=== PATIENT | male | born 1955 | race African-American/Black ===

== ENCOUNTER 2020-09-08 13:33 | Inpatient (IN) | payer OTHER ==
[~2020-09-08] VITALS: Ht 182.9 cm; Wt 118.6 kg
--- NOTE | 2020-09-08 13:33 | NUR ---
PATIENT TO ROOM VIA EMS AND PHYSICIAN AT BEDSIDE FOR EVAL
--- NOTE | 2020-09-08 13:33 | NUR ---
PATIENT ARRIVED WITH ROGERS CATHTER IN PLACE FROM FACILITY. DRAINING ZAYRA CLOUDY URINE
--- NOTE | 2020-09-08 14:28 | NUR ---
PATIENT RESTING EASILY AROUSED BUT DROWSY. PATIENT ANSWERS QUESTIONS DIRECTED AND FOLLOWS ALL COMMANDS
[2020-09-08 14:34] LABS: IMMATURE GRANULOCYTES 1.4 % (0.0-5.0); MEAN CELL VOLUME 76.2 fL CALC (80.0-100.0); MEAN CORPUSCULAR HGB 23.2 pG CALC (26.0-32.0); MEAN CORPUSCULAR HGB CONC 30.5 g/dL CAL (32.0-36.0); NEUT# 10.85 thou/uL (1.82-7.42); RED BLOOD COUNT 5.38 mill/uL (4.70-6.10); RED CELL DISTRI WIDTH 17.5 % (11.5-15.5)
[2020-09-08 14:37] LABS: URINE BILIRUBIN - DIPSTICK NEGATIVE (NEGATIVE); URINE BLOOD DIPSTICK LARGE (NEGATIVE); URINE COLOR YELLOW; URINE GLUCOSE - DIPSTICK NEGATIVE (NEGATIVE); URINE KETONE NEGATIVE (NEGATIVE); URINE PROTEIN - DIPSTICK 100 mg/dL (NEG-TRACE); URINE SPECIFIC GRAVITY 1.025
[2020-09-08 14:38] LABS: URINE LEUK ESTERASE SMALL (NEGATIVE); URINE NITRITE - DIPSTICK POSITIVE (Negative)
[2020-09-08 14:47] LABS: URINE RBC 25-50 RBC/hpf (0-5); URINE WBC 20-50 WBC/hpf (0-5)
[2020-09-08 14:48] LABS: HEMOGLOBIN 12.5 g/dl (14.0-18.0)
[2020-09-08 15:01] LABS: ALBUMIN 4.2 g/dL (3.2-5.0); ANION GAP 15 (6-22 (CALC)); BUN 18 mg/dL (8-23); BUN/CREATININE RATIO 13 (12-20 (CALC)); CARBON DIOXIDE 27 mmol/l (22-30); CHLORIDE 104 mmol/l (95-108); CREATININE 1.4 mg/dL (0.7-1.3); GFR 51 ML/MIN (>=60 (CALC)); GFR FOR AFR.AMER. > 60 ML/MIN (>=60 (CALC)); POTASSIUM 4.6 mmol/l (3.5-5.1); SGOT/AST 29 u/l (19-48); SODIUM 141 mmol/l (137-146); TOTAL PROTEIN 7.7 g/dL (6.3-8.2)
[2020-09-08] MEDS ORDERED: OXYBUTYNIN CHLOR5 M1 PO (15:03)
[2020-09-08 15:04] LABS: ALKALINE PHOSPHATASE 53 u/l (38-126); BILIRUBIN, TOTAL 0.7 mg/dL (0.0-1.4)
[2020-09-08] MEDS ORDERED: BENADRYL 550 MG/1 M2 IM (15:04)
[2020-09-08] MEDS ORDERED: HALDOL INJ5 MG/ML IM (15:05)
[2020-09-08] MEDS ORDERED: KLONOPIN0.5 M1 PO (15:06)
[2020-09-08] MEDS ORDERED: COLACE100 MG PO (15:07)
[2020-09-08] MEDS ORDERED: FLUPHENAZINE10 MG PO (15:08)
[2020-09-08] MEDS ORDERED: ZYPREXA PO (15:09)
[2020-09-08] MEDS ORDERED: FENOFIBRATE160 MG PO (15:09)
[2020-09-08] MEDS ORDERED: DEPAKOTE ER500 MG PO (15:10)
--- NOTE | 2020-09-08 15:11 | NUR ---
UNABLE TO VERIFY FREQUENCY OF MEDICATIONS TAKEN PHARMACY CONSULT PLACED
[2020-09-08 15:13] LABS: MYOGLOBIN 142 ng/mL (0 - 121)
--- NOTE | 2020-09-08 16:13 | NUR ---
AT BEDSIDE TO START ROCEPHIN. IV SITE TO RAC INFILTRATED WITH MODERATE SWELLING TO ARM. MD NOTIFIED. IV SITE REMOVED AND WARM COMPRESS APPLIED.
--- NOTE | 2020-09-08 16:30 | NUR ---
UNABLE TO START IV AT THIS TIME. MD NOTIFIED AND MLP AT BEDSIDE TO TRY TO INITIATE IV SITE.
--- NOTE | 2020-09-08 16:49 | NUR ---
ZUMBA INSTRUCTOR BEDSIDE FOR REPEAT LACTIC DRAW.
--- NOTE | 2020-09-08 17:37 | NUR ---
PATIENT RESTING WITH EYES CLOSED VOICING NO COMPLAINTS AT THIS TIME. PATINET AROUSES TO VERBAL STIMULI
--- NOTE | 2020-09-08 18:27 | NUR ---
PATIENT RESTING WITH EYES CLOSED BUT AROUSES TO VERBAL COMMANDS PUPILS 2MM AND REACTIVE. PATIENT AWAITNG ROOM ASSIGNMENT
--- NOTE | 2020-09-08 18:55 | NUR ---
REPORT PROVIDED TO TAMIKO FUENTES.
--- NOTE | 2020-09-08 19:00 | NUR ---
RECIEVED REPORT FROM KAILA/GINA FOSTER. PT TO BE ADMITTED.
[2020-09-08 19:59] LABS: ETHYL ALCOHOL 0 mg/dl (0-30)
--- NOTE | 2020-09-08 20:00 | NUR ---
REPORT GIVEN TO GINA MCGUIRE
[2020-09-08 21:30] VITALS: BP 146/57
--- NOTE | 2020-09-08 21:30 | NUR ---
WENT TO TRANSPORT PT AND NOTED PT FELT WARM. CHECKED TEMP 99.1. PT WAS LOADED WITH BLANKETS ALL WRAPPED AROUND HIM. PT TRANSPORTED VIA STRETCHER TO ROOM 274 WITH B/L ANKLES SHACKLED TOGETHER AND 2 GUARDS AT BEDSIDE. UPDATED AUBREY ON PT.
--- NOTE | 2020-09-08 22:30 | NUR ---
Pt was admitted to room 274 via stretcher. Pt was transferred to bed with 3 staff assist. Pt is not able to make needs known and responds to touch. appears drowsy and words are garbled. Lung sounds are clear/diminished. No cough or congestion noted. on telemetry and HR at 110bpm as well as tempt of 100.6. Md was called and new order for Tylenol.. NS 0.9% running at 150ml/hr. pt has a manriquez catheter in place and steve coloreed urine noted. pt has 3 gaurds at bedside.
[2020-09-09] VITALS: BP 131/65
--- NOTE | 2020-09-09 01:00 | NUR ---
Pt in bed with eyes open and appears to be more alert. Pt is answering questions. rechecked temperature and decreased. HR also decreased 99 SR. pt is tolerating liquids well. will continue to observe
[2020-09-09 03:30] VITALS: BP 137/57
[2020-09-09 03:35] VITALS: BP 118/47
--- NOTE | 2020-09-09 05:13 | NUR ---
PT IN BED WITH EYES CLOSED. PLACED ON BEDPAN STATED HE HAS TO HAVE A BOWEL MOVEMENT. aSSIST OF 2 WITH CARE. CONTINUES ON NS 0.9% AT 150ML/HR AND TOLERATING WELL. NO RESPIRATORY DISTRESS NOTED. SKIN ASSESSED AND NO SKIN CONCERNS NOTED. WILL CONTINUE TO OBSERVE
--- NOTE | 2020-09-09 07:00 | NUR ---
SHIFT CHANGE REPORT, PT LETHARGIC, DENIES PAIN, SLOW TO RESPONSE, ORIENTED TO NAME ONLY, IVF INFUSING, O2 @ 3L VIA NC IN PLACE, BREATHING SHALLOW. CALL NUNEZ IN REACH, GUARDS X 2 AT BEDSIDE.
[2020-09-09 07:43] VITALS: BP 131/74
[2020-09-09 09:34] LABS: HEMATOCRIT 36.9 % (39.0-50.0); HEMOGLOBIN 11.4 g/dl (14.0-18.0); MEAN CELL VOLUME 75.8 fL CALC (80.0-100.0); MEAN CORPUSCULAR HGB 23.4 pG CALC (26.0-32.0); MEAN CORPUSCULAR HGB CONC 30.9 g/dL CAL (32.0-36.0); RED BLOOD COUNT 4.87 mill/uL (4.70-6.10); RED CELL DISTRI WIDTH 17.2 % (11.5-15.5)
[2020-09-09 09:40] LABS: ALBUMIN 3.4 g/dL (3.2-5.0); ALKALINE PHOSPHATASE 44 u/l (38-126); ANION GAP 12 (6-22 (CALC)); BILIRUBIN, TOTAL 0.7 mg/dL (0.0-1.4); BUN 17 mg/dL (8-23); BUN/CREATININE RATIO 15 (12-20 (CALC)); CARBON DIOXIDE 22 mmol/l (22-30); CHLORIDE 109 mmol/l (95-108); CREATININE 1.1 mg/dL (0.7-1.3); GFR > 60 ML/MIN (>=60 (CALC)); GFR FOR AFR.AMER. > 60 ML/MIN (>=60 (CALC)); MAGNESIUM 1.9 mg/dL (1.6-2.3); POTASSIUM 4.1 mmol/l (3.5-5.1); SGOT/AST 28 u/l (19-48); SODIUM 139 mmol/l (137-146); TOTAL PROTEIN 6.3 g/dL (6.3-8.2)
--- NOTE | 2020-09-09 10:44 | NUR ---
NURSE MAZA FROM [facility] REQUESTED REPORT ON PT, REPORT GIVEN WITH REQUESTED INFORMATION.
[2020-09-09 15:30] VITALS: BP 113/58
[2020-09-09 19:30] VITALS: BP 128/78
--- NOTE | 2020-09-09 20:30 | NUR ---
PT IN BED WITH EYES CLOSED. DROWSY AND SLOW WITH RESPONSES. PY HAS NO RESPIRATORY DISTRESS NOTED. ROGERS CATH IN PLACE AND DRAINING ZAYRA COLORED URINE. PT COMPLAINING OF DISCOMFORT WITH ROGERS. ROGERS CARE COMPLETED AND NO CONCERNS NOTED. PT HAS NO SKIN CONCERNS NOTED. HAS 2 GAURDS AT BEDSIDE. CALL LIGHT WITHIN REACH. CONTINUES ON LOVENOX THERAPY. WILL CONTINUE TO OBSERVE
[2020-09-10] VITALS: BP 146/81
[2020-09-10 04:00] VITALS: BP 153/81
[2020-09-10 05:18] LABS: HEMATOCRIT 35.2 % (39.0-50.0); IMMATURE GRANULOCYTES 0.9 % (0.0-5.0); MEAN CELL VOLUME 74.9 fL CALC (80.0-100.0); MEAN CORPUSCULAR HGB 23.4 pG CALC (26.0-32.0); MEAN CORPUSCULAR HGB CONC 31.3 g/dL CAL (32.0-36.0); NEUT# 10.12 thou/uL (1.82-7.42); RED BLOOD COUNT 4.7 mill/uL (4.70-6.10); RED CELL DISTRI WIDTH 16.8 % (11.5-15.5)
[2020-09-10 05:35] LABS: ALBUMIN 3.2 g/dL (3.2-5.0); ALKALINE PHOSPHATASE 55 u/l (38-126); ANION GAP 10 (6-22 (CALC)); BILIRUBIN, TOTAL 0.5 mg/dL (0.0-1.4); BUN 16 mg/dL (8-23); BUN/CREATININE RATIO 16 (12-20 (CALC)); CARBON DIOXIDE 25 mmol/l (22-30); CHLORIDE 108 mmol/l (95-108); GFR > 60 ML/MIN (>=60 (CALC)); GFR FOR AFR.AMER. > 60 ML/MIN (>=60 (CALC)); SGOT/AST 33 u/l (19-48); SODIUM 139 mmol/l (137-146); TOTAL PROTEIN 6.2 g/dL (6.3-8.2)
--- NOTE | 2020-09-10 05:56 | NUR ---
PT IN BED WITH EYES OPEN AND ABLE TO MAKE NEEDS KNOWN. sKIN WARM TO TOUCH. MEDICATIONS GIVEN WITH NO COMPLICATIONS. NON PRODUCTIVE COUGH AND EXPERATORY WHEEZING NOTED.
--- NOTE | 2020-09-10 06:11 | NUR ---
PT IN BED WITH EYES OPEN AND REQUESTINF BREAKFAST. APPLESAUCE WAS GIVEN AND ORANGE JUICE AND PT TOLERATED WELL.tELEMETRY IN PLACE. PT NOTED WITH EXPRATORY WHEEZING IN UPPER LOBES WITH O2 SAT 98% 2LNC. HOB ELEVATED AND CALL LIGHT WITHIN REACH. PT HAS 2 OFFICERS AT BEDTIME
--- NOTE | 2020-09-10 07:34 | NUR ---
PT note Patient is screened for PT intervention and he may benefit from consult if medical agrees
[2020-09-10 07:54] VITALS: BP 144/86
--- NOTE | 2020-09-10 08:36 | NUR ---
DR WHITMORE AND BRENT,ANRP AT BEDSIDE
[2020-09-10 10:30] VITALS: BP 157/87
--- NOTE | 2020-09-10 11:19 | NUR ---
RECIEVED REPORT FROM EDVIN RN. PT RESTING IN SEMI FOWLERS POSITION UPON ENTERING ROOMWITH GUARDS X2 AT BEDSIDE. INTRODUCED SELF TO PT AND DICUSSED POC. PT IS FROM [facility]. PT IS A/O X1. ASSESSMENT AND VITALS COMPLETED. BP 144/86, HR 90, O2 98% ON 2L NC. ATTEMPTED TO REMOVED OXYGEN TO MONITORING SAT WITHOUT. PT STATED HE WANTED TO KEEP OXYGEN ON. RESPIATIONS AR EVEN AND UNLABORED. HEART RHYTHM IS NORMAL WITH TELE IN PLACE, SR PER ER MONITORING. BOWEL SOUND SARE ACTIVE IN ALL QUADRANTS, LAST REPORETD BM IS UNKNOWN. MD TO BE MADE AWARE. RADIAL AND PEDAL PULSES ARE STRONG.ROGERS CATHATER IN PLACE. 800 OF CLOUDY YELLOW OUTPUT NOTED. #22G IN LF RUNNING WITH IVF PER ORDER, SITE APPEARS HEALTHY AND PATENT. SKIN IS WARM DRY WITH TRACE EDEMA NOTED. RIGHT ANKLE SHACKLED OT BED. ALL SFAETY PRECAUTIONS ARE IN PLACE WITH CALL LIGHT IN REACH. WILL CONTINUE TO MONITOR.
--- NOTE | 2020-09-10 12:38 | NUR ---
PT SLEEPING WITH EYES CLOSED. RESPIRAITONS ARE EVEN AND UNLABORED ON 2L NC. ROGERS CATHATER IN PLACE, TUBING UNKINKED FLOWING WITH GRAVITY.TELE MONITORING IN PLACE. NO SIGNS OF ANY PAINS OR DISCOMFORTS. ALL SAFETY PRECAUTIONS ARE IN PLACE WITH CALL LIGHT IN REACH. WILL CONTINUE TO MONITOR
--- NOTE | 2020-09-10 13:33 | NUR ---
PT AT BEDSIDE
[2020-09-10 15:00] VITALS: BP 144/85
--- NOTE | 2020-09-10 19:01 | NUR ---
PT RESTING IN SEMI FOWLERS POSITION. RESPIRATIONS EVEN AND UNLABORED. IVF INFUSING PER ORDER, SITE APPEARS EHALTHY AND PATENT. GUARDS X2 AT BEDSIDE. ALL SAFTEY PRECAUTIONS ARE IN PLACE WITH CALL LIGHT IN REACH. WILL CONTINUE TO MONITOR
[2020-09-10 20:00] VITALS: BP 180/81
--- NOTE | 2020-09-10 20:04 | NUR ---
PHYSICAL ASSESMENT COMPLETE. PT CURRENTLY DENIES PAIN OR DISCOMFORT. SCHEDULED MEDICATIONS AND PRN MEDICATION ADMINISTERED, SEE E-MAR. PT DENIES ANY NEEDS AT THIS TIME. PT SHACKELD TO THE BED. CIRCULATION CHECKED AND COMFORTABLE. 2 GUARDS PRESENT BEDSIDE. PLAN OF CARE REVIEWED, PT DENIES QUESTIONS, VERBALIZES UNDERSTANDING. ITEMS WITHIN REACH, BED LOCKED IN LOW POSITION W/ BEDRAILS UP X2. CALL NUNEZ WITHIN REACH, AGREES TO CALL PRN.
--- NOTE | 2020-09-11 02:03 | NUR ---
PT LAYING IN BED WITH EYES CLOSED, APPEARS TO BE SLEEPING, APPEARS COMFORTABLE AND IN NO DISTRESS. RESPIRATIONS REGULAR AND UNLABORED. PT SHACKLED TO THE BED.CIRCULATION CHECKED. 2 GUARDS PRESENT. ITEMS REMAIN WITHIN REACH, CALL NUNEZ REMAINS WITHIN REACH. BED REMAINS LOCKED AND IN LOW POSITION WITH BEDRAILS UP X2. WILL CONTINUE TO MONITOR.
[2020-09-11 04:00] VITALS: BP 154/93
--- NOTE | 2020-09-11 04:07 | NUR ---
PT RESTING IN BED, NO SIGNS OF DISTRESS NOTED, RESP EVEN AND UNLABORED. PT VOICES NO NEEDS OR COMPLAINTS AT THIS TIME. CALL LIGHT IN REACH, CONTINUE TO MONITOR.
--- NOTE | 2020-09-11 05:51 | NUR ---
RETURNED CALL FOR THE [facility] UPDATE. NO ANSWER.
[2020-09-11 05:57] LABS: HEMATOCRIT 35.7 % (39.0-50.0); HEMOGLOBIN 11.1 g/dl (14.0-18.0); IMMATURE GRANULOCYTES 1.6 % (0.0-5.0); MEAN CELL VOLUME 74.4 fL CALC (80.0-100.0); MEAN CORPUSCULAR HGB 23.1 pG CALC (26.0-32.0); MEAN CORPUSCULAR HGB CONC 31.1 g/dL CAL (32.0-36.0); NEUT# 7.31 thou/uL (1.82-7.42); RED BLOOD COUNT 4.8 mill/uL (4.70-6.10); RED CELL DISTRI WIDTH 16.5 % (11.5-15.5)
[2020-09-11 06:29] LABS: ALBUMIN 3.4 g/dL (3.2-5.0); ALKALINE PHOSPHATASE 61 u/l (38-126); ANION GAP 13 (6-22 (CALC)); BILIRUBIN, TOTAL 0.4 mg/dL (0.0-1.4); BUN 19 mg/dL (8-23); BUN/CREATININE RATIO 18 (12-20 (CALC)); CARBON DIOXIDE 25 mmol/l (22-30); CHLORIDE 106 mmol/l (95-108); GFR > 60 ML/MIN (>=60 (CALC)); GFR FOR AFR.AMER. > 60 ML/MIN (>=60 (CALC)); POTASSIUM 4.4 mmol/l (3.5-5.1); SODIUM 140 mmol/l (137-146); TOTAL PROTEIN 6.4 g/dL (6.3-8.2)
[2020-09-11 06:34] LABS: SGOT/AST 72 u/l (19-48)
[2020-09-11 08:18] VITALS: BP 126/64
--- NOTE | 2020-09-11 08:18 | NUR ---
RECIEVED REPORT FROM GINA SLAUGHTER. PT RESTING IN SEMI FOWLERS POSITION UPON ENTERING ROOM. INTRODUCED SELF TO PT AND DISUCSSED POC. PT IS A/O X1 AND CONFUSED. ASSESSMENT AND VITALS COMPLETED. BP 126/64, HR 93, O2 92% ON ROOM AIR. RESPIRATIONS ARE EVEN AND UNLABORED ON ROOM AIR. HEART RHYTHM IS NORMAL WITH TELE IN PLACE. BOWEL SOUNDS ARE ACTIVE, LAST RPEORETD BM 09/11/2020. RADIAL AND PEDAL PULSES ARE STRONG. #20G IN LH RUNNING WITH IVF PER ORDER, SITE APPEARS HEALTHY AND PATENT. ROGERS CATHATER IN PLACE, FLOWING WITH GRAVITY. PT DENIES ANY PAINS OR DISCOMFORTS. ALL SAFETY PRECAUTIONS ARE IN PLACE WITH CALL LIGHT IN REACH AND GUARDS X2 AT BEDSIDE WITH RIGHT LEG SHACKLED TO BED. WILL CONTINUE TO MONITOR
--- NOTE | 2020-09-11 09:22 | NUR ---
ROGERS CATHATER REMOVED PER ORDERS. PT TOLERATED WELL. PHOTOFINISHING LABORATORY WORKER EDUCATED PT ON NEED TO VOID AFTER. URINAL PROVIDED. ALL SAFETY PRECAUTIONS ARE IN PLACE WITH CALL LIGHT IN REACH. WILL CONTINUE TO MONITOR
--- NOTE | 2020-09-11 11:15 | NUR ---
PT INCONTIENT OF URINE AT THIS TIME. PATTY CARE PROVIDED. PT STATES HE HAS TO HAVE A BM. SENIOR PROFESSIONAL SERVICES CONSULTANT ASSISTED PT TO BATHROOM. GUARDS X2 AT BEDSIDE. INSTRUCTED PT TO PULL COARD WHEN FINISHED. ALL SFAETY PRECAUTIONS ARE IN PLACE WITH CALL LIGHT IN REACH. WILL CONTINUE TO MONITOR
[2020-09-11 11:19] VITALS: BP 156/98
[2020-09-11] MEDS ORDERED: KEFLEX500 M1 PO (11:25)
--- NOTE | 2020-09-11 12:41 | NUR ---
PT EDUACTED ON DISCHARGE INSTRUCTIONS. PT VERALIZED UNDERSTANDING. IV REMOVED WITH CATHATER STILL INTACT. PT TOLERATED WELL.TELE MONITORING REMOVED. ER NOTIFIED. PT TO BE TRANSPORTED BACK TO [facility] GUARDS. ALL SFAETY PRECAUTIONS ARE I PLACE WIHT CALL LIGHT IN REACH.
--- NOTE | 2020-09-11 12:59 | NUR ---
Discharge instructions given. Patient verbalizes understanding of same. [facility] All belongings sent with pt. PT DSICHARGED BACK TO [facility] VIA WHEELCHAIR IN STABLE CONDITION ACCOMPAINED BY GUARDS X2. PT LEFT WITH ALL DISCHARGE INSTRUCTIONS AND BELONGINGS
--- NOTE | 2020-09-11 13:08 | NUR ---
REPORT CALLED TO GINA MACEDO AT [facility]
--- NOTE | 2020-09-11 13:20 | NUR ---
CALLED FROM [facility] STATED THEY NEEDED A COPY OF NEGATIVE COVID TEST. SWAB RESULTS FAXED.
== END 2020-09-11 12:58 | disposition designated cancer center or children's hospital (05) | DRG 872 ==
LOC: ED 13:33 → ED-I 15:58 → ED 15:58 → ED-I 16:00 → ED 16:10 → MS2 16:11
PROVIDERS: Emergency Medicine; Nurse Practitioner; ADMIT Internal Medicine; ATTEND Internal Medicine
DX: A41.9 Sepsis, unspecified organism (principal); N39.0 Urinary tract infection, site not specified; G93.40 Encephalopathy, unspecified; B96.20 Unspecified Escherichia coli [E. coli] as the cause of diseases classified elsewhere; E11.9 Type 2 diabetes mellitus without complications; I10 Essential (primary) hypertension; F20.9 Schizophrenia, unspecified; Z20.828 Contact with and (suspected) exposure to other viral communicable diseases; Z79.899 Other long term (current) drug therapy
CPT/HCPCS: J1650